=== PATIENT | male | born 1950 | race Caucasian/White ===

== ENCOUNTER 2017-11-25 09:55 | Outpatient (CLI) | payer OTHER ==
[2017-11-25 10:30] LABS: BASOPHILS % (AUTO) 0.6 % (0-1); EOSINOPHILS # (AUTO) 0.2 X10'3 (0-0.9); EOSINOPHILS % (AUTO) 3.6 % (0-6); HEMATOCRIT 44.1 % (42.0-52.0); HEMOGLOBIN 15.2 g/dl (14.0-17.9); LYMPHOCYTES # (AUTO) 1.9 X10'3 (1.1-4.8); LYMPHOCYTES % (AUTO) 30.2 % (21-51); MEAN CORPUSCULAR HGB CONC 34.4 % (33.0-36.5); MEAN CORPUSCULAR VOLUME 98.9 FL (78-98); MEAN PLATELET VOLUME 7.5 FL (7.4-10.4); MONOCYTES # (AUTO) 0.6 X10'3 (0-0.9); MONOCYTES % (AUTO) 9.3 % (2-12); NEUTROPHILS # (AUTO) 3.5 X10'3 (1.8-7.7); NEUTROPHILS % (AUTO) 56.3 % (42-75); PLATELET COUNT 130 X10'3 (140-440); RED BLOOD COUNT 4.46 X10'6 (4.70-6.10); RED CELL DISTRIBUTION WIDTH 13.1 % (11.5-14.5); WHITE BLOOD COUNT 6.2 X10'3 (4.5-11.0)
[2017-11-25 10:38] LABS: GLUCOSE, URINE NEGATIVE (Neg); KETONES,URINE NEGATIVE (Neg); LEUKOCYTE ESTERASE ,URINE NEGATIVE (Neg); NITRITES, URINE NEGATIVE (Neg); OCCULT BLOOD,URINE NEGATIVE (Neg); PROTEIN,URINE TRACE mg/dl (Neg); UROBILINOGEN,URINE 0.2 E.U/dL (0.2-1.0)
[2017-11-25 10:44] LABS: CLARITY,URINE CLEAR (Clear); COLOR,URINE YELLOW (Yellow); UA COLLECTION TYPE CLN CATCH MIDSTREAM
[2017-11-25 10:46] LABS: BACTERIA,URINE NONE SEEN /HPF (Neg); RBC,URINE NONE SEEN /HPF (0-2); SQUAMOUS EPITHELIAL CELL,UR FEW /LPF (FEW); WBC,URINE NONE SEEN /HPF (0-4)
[2017-11-25 10:56] LABS: ALANINE AMINOTRANSFERASE 20 U/L (12-78); ALBUMIN 3.6 G/DL (3.4-5.0); ALKALINE PHOSPHATASE 105 IU/L (46-116); ANION GAP 6 (8-16); ASPARTATE AMINO TRANSFERASE 11 U/L (10-37); BILIRUBIN,TOTAL 0.4 MG/DL (0.1-1.0); BLOOD UREA NITROGEN 23 MG/DL (7-18); BUN/CREATININE RATIO 21.5 (5.4-32.0); CALCIUM 8.9 MG/DL (8.5-10.1); CHLORIDE 104 MMOL/L (99-107); CHOL/HDL RATIO 2.7 (0.00-4.99); CHOLESTEROL 133 MG/DL (0-200); CREATININE 1.07 MG/DL (0.60-1.10); GLUCOSE 155 MG/DL (70-104); HDL CHOLESTEROL 49 MG/DL (35-60); LDL CHOLESTEROL 76 MG/DL (50-100); POTASSIUM 4.2 MMOL/L (3.5-5.1); SODIUM 140 MMOL/L (135-145); TOTAL CARBON DIOXIDE 30.2 MMOL/L (24-32); TOTAL PROTEIN 7.1 G/DL (6.4-8.2); TRIGLYCERIDES 93 MG/DL (20-135); eGFR 69 ML/MIN
== END 2017-11-25 23:59 | disposition home or self-care (01) ==
LOC: LAB 09:55
PROVIDERS: ATTEND Family Medicine
DX: E11.9 Type 2 diabetes mellitus without complications (principal); F17.200 Nicotine dependence, unspecified, uncomplicated
CPT/HCPCS: 36415; 80053; 80061; 81001; 83036; 84443; 85025

== ENCOUNTER 2021-09-02 11:50 | Inpatient (IN) | payer MEDICARE, OTHER ==
[~2021-09-02] VITALS: Ht 170.2 cm; Wt 157.0 kg
[2021-09-02] MEDS ORDERED: dexamethasone sod phosphate 10mg/ml inj IV STA (12:27)
[2021-09-02] MEDS ORDERED: normal saline 1000ML IV soln IVB ONE ×2 (12:30→15:25)
[2021-09-02] MEDS ORDERED: ipratropium/albuterol 3ml nebule NEB ONE (12:35)
[2021-09-02 13:03] LABS: BASOPHILS % (AUTO) 0.1 % (0-1); EOSINOPHILS % (AUTO) 0.5 % (0-6); HEMATOCRIT 37.6 % (42.0-52.0); HEMOGLOBIN 12.5 g/dl (14.0-17.9); LYMPHOCYTES # (AUTO) 0.4 X10'3 (1.1-4.8); LYMPHOCYTES % (AUTO) 5.8 % (21-51); MEAN CORPUSCULAR HEMOGLOBIN 33.4 PG (27.0-31.0); MEAN CORPUSCULAR HGB CONC 33.2 g/dL (33.0-36.5); MEAN CORPUSCULAR VOLUME 100.6 FL (78-98); MEAN PLATELET VOLUME 7.8 FL (7.4-10.4); MONOCYTES # (AUTO) 0.6 X10'3 (0-0.9); MONOCYTES % (AUTO) 8.3 % (2-12); NEUTROPHILS # (AUTO) 6.2 X10'3 (1.8-7.7); NEUTROPHILS % (AUTO) 85.3 % (42-75); PLATELET COUNT 141 X10'3 (140-440); RED BLOOD COUNT 3.74 X10'6 (4.70-6.10); RED CELL DISTRIBUTION WIDTH 14.4 % (11.5-14.5); WHITE BLOOD COUNT 7.3 X10'3 (4.5-11.0)
[2021-09-02 13:31] LABS: ALANINE AMINOTRANSFERASE 14 U/L (12-78); ALBUMIN 2.1 G/DL (3.4-5.0); ALBUMIN/GLOBULIN RATIO 0.5 (1.1-1.5); ALKALINE PHOSPHATASE 124 IU/L (46-116); ASPARTATE AMINO TRANSFERASE 13 U/L (10-37); BILIRUBIN,TOTAL 0.4 MG/DL (0.1-1.0); BLOOD UREA NITROGEN 12 MG/DL (7-18); BUN/CREATININE RATIO 16.9 (5.4-32.0); CALCIUM 9.9 MG/DL (8.5-10.1); CREATININE 0.71 MG/DL (0.60-1.10); MAGNESIUM 1.5 MG/DL (1.5-2.4); TOTAL CARBON DIOXIDE 32.8 MMOL/L (24-32); TOTAL PROTEIN 6.5 G/DL (6.4-8.2); eGFR > 90 ML/MIN
[2021-09-02 13:36] LABS: GLUCOSE 533 MG/DL (70-104)
[2021-09-02 13:47] LABS: CLARITY,URINE CLEAR (Clear); GLUCOSE, URINE >=1000 mg/dl (Neg); KETONES,URINE 15 mg/dl (Neg); LEUKOCYTE ESTERASE ,URINE NEGATIVE (Neg); NITRITES, URINE NEGATIVE (Neg); OCCULT BLOOD,URINE NEGATIVE (Neg); PROTEIN,URINE NEGATIVE (Neg); UROBILINOGEN,URINE 0.2 E.U/dL (0.2-1.0)
[2021-09-02 13:50] LABS: COLOR,URINE STRAW (Yellow); UA COLLECTION TYPE STRAIGHT CATH
[2021-09-02 13:52] LABS: SQUAMOUS EPITHELIAL CELL,UR FEW /LPF (FEW)
[2021-09-02 13:53] LABS: BACTERIA,URINE FEW /HPF (Neg); RBC,URINE 0-2 /HPF (0-2); WBC,URINE 0-4 /HPF (0-4)
[2021-09-02] MEDS ORDERED: iohexol 350MG/ML 100ml bottle IV ONE (14:46)
[2021-09-02] MEDS ORDERED: DOXY100C43 PO ×2 (14:53)
[2021-09-02] MEDS ORDERED: insulin regular, human 10 units/0.1 ml syringe IV ONE (15:25)
[2021-09-02] MEDS ORDERED: CefTRIAXone 2gm/D5W 50ml BAG 50 ML IV ONE (15:30)
[2021-09-02] MEDS ORDERED: HYDROcodone/acetaminophen 10/325mg tab PO PRN (15:45)
[2021-09-02] MEDS ORDERED: ondansetron 4mg rapidly disintigrating tab PO PRN (15:45)
[2021-09-02] MEDS ORDERED: bisacodyl 10mg suppository rectal RC PRN (15:45)
[2021-09-02] MEDS ORDERED: acetaminophen 325mg tablet PO PRN ×2 (15:45)
[2021-09-02] MEDS ORDERED: ondansetron/PF 4mg/2ml inj IV PRN (15:45)
[2021-09-02] MEDS ORDERED: HYDROcodone/acetaminophen 5mg/325mg tablet PO PRN (15:45)
[2021-09-02] MEDS ORDERED: potassium CL 10mEq/100ml bag 100 ML IV PRN (15:45)
[2021-09-02] MEDS ORDERED: metoclopramide 5 mg/ml inj IV PRN (15:45)
[2021-09-02] MEDS ORDERED: acetaminophen 650mg rectal suppository RC PRN (15:45)
[2021-09-02] MEDS ORDERED: magnesium 2GM in 50ml NS 50 ML IV PRN (15:45)
[2021-09-02] MEDS ORDERED: azithromycin 250mg tablet PO ONE (15:45)
[2021-09-02] MEDS ORDERED: mag hydrox/Alum hydrox/simeth 30ml oral suspension PO PRN (15:45)
[2021-09-02] MEDS ORDERED: ipratropium/albuterol 3ml nebule NEB PRN (15:45)
[2021-09-02] MEDS ORDERED: potassium Cl 20 mEq SR tablet PO PRN ×2 (15:45)
[2021-09-02] MEDS ORDERED: magnesium hydroxide 30ml (MOM) UD suspension PO PRN (15:45)
[2021-09-02] MEDS ORDERED: magnesium Cl slow-release 64mg tablet PO PRN (15:45)
[2021-09-02] MEDS ORDERED: magnesium 4gm in 100ml NS 100 ML IV PRN (15:45)
[2021-09-02] MEDS ORDERED: MESSAGE TO PHARMACY PO ONE (15:55)
[2021-09-02] MEDS ORDERED: dextrose 50%-water 50ml dispensing syringe IV PRN ×2 (15:55)
[2021-09-02] MEDS ORDERED: glucagon, human recombinant 1mg kit SUBCUT PRN (15:55)
[2021-09-02] MEDS ORDERED: DEXTROSE 15 GM of carb/4 tabs (each vial/BOTTLE has 4 tablets) PO PRN ×2 (15:55)
[2021-09-02] MEDS: normal saline 1000ml 1,000 ML IV SCH (16:16)
--- NOTE | 2021-09-02 18:54 | NUR ---
Received report from MIGUELITO Keene. Awaiting patient arrival to the floor.
[2021-09-02 18:56] LABS: HEMOGLOBIN A1C 12.2 % (4.5-6.2)
[2021-09-02] MEDS ORDERED: ALBU2.5V10 (19:00)
[2021-09-02] MEDS ORDERED: NICO-630 TOP (19:00)
[2021-09-02] MEDS ORDERED: CLON-371 PO (19:00)
[2021-09-02] MEDS ORDERED: FLO0.4C PO (19:00)
[2021-09-02] MEDS ORDERED: APIX5TAB3 PO (19:00)
[2021-09-02] MEDS ORDERED: TEMA30CA PO (19:00)
--- NOTE | 2021-09-02 19:20 | NUR ---
pt currently asymptomatic and after report hr is at 147 and afib. hospitalist contacted
--- NOTE | 2021-09-02 19:28 | NUR ---
HOSPITALIST CONTACTED IN REGARDS TO PT IN AFIB. VERBAL ORDER FOR 10MG CARDIZEM RECIEVED.
[2021-09-02] MEDS ORDERED: SOTA80TA73 PO (19:30)
[2021-09-02] MEDS ORDERED: diltiazem 5mg/ml 5ml inj. IV ONE (19:30)
[2021-09-02] MEDS: K and/or MAG REPLACEMENT MC SCH (20:00)
[2021-09-02 20:20] VITALS: BP 119/67
[2021-09-02] MEDS: ipratropium/albuterol 3ml nebule NEB SCH (20:31)
[2021-09-02] MEDS ORDERED: NICO-631 TD (20:39)
[2021-09-02] MEDS ORDERED: temazepam 15mg capsule PO PRN (21:00)
[2021-09-02] MEDS ORDERED: albuterol 2.5 MG/3 ML nebule NEB PRN (21:05)
[2021-09-02] MEDS ORDERED: tamsulosin 0.4mg capsule PO ONE (21:10)
[2021-09-02] MEDS ORDERED: nicotine 14mg patch - 24hr TD ONE (21:10)
[2021-09-02] MEDS ORDERED: apixaban 5mg tablet PO ONE (21:10)
[2021-09-02] MEDS ORDERED: sotalol 80mg tablet PO ONE (21:10)
[2021-09-02] MEDS: temazepam 15mg capsule PO PRN (21:28)
[2021-09-02] MEDS: insulin glargine (Lantus) pen - multi-dose SQ SCH (21:37)
[2021-09-02 22:00] VITALS: BP 105/61
[2021-09-03 02:00] VITALS: BP 105/54
[2021-09-03] MEDS: ipratropium/albuterol 3ml nebule NEB SCH ×4 (03:28→20:00)
[2021-09-03] MEDS: normal saline 1000ml 1,000 ML IV SCH ×2 (05:13→19:31)
[2021-09-03 06:00] VITALS: BP 105/62
--- NOTE | 2021-09-03 06:23 | NUR ---
Problems reprioritized. Patient report given, questions answered & plan of care reviewed with Carla RN.
[2021-09-03 07:02] LABS: BASOPHILS % (AUTO) 0.1 % (0-1); EOSINOPHILS % (AUTO) 0 % (0-6); HEMATOCRIT 33.1 % (42.0-52.0); LYMPHOCYTES # (AUTO) 0.6 X10'3 (1.1-4.8); LYMPHOCYTES % (AUTO) 6.3 % (21-51); MEAN CORPUSCULAR HEMOGLOBIN 33.6 PG (27.0-31.0); MEAN CORPUSCULAR HGB CONC 33.4 g/dL (33.0-36.5); MEAN CORPUSCULAR VOLUME 100.6 FL (78-98); MONOCYTES # (AUTO) 0.2 X10'3 (0-0.9); MONOCYTES % (AUTO) 2.4 % (2-12); NEUTROPHILS # (AUTO) 8.8 X10'3 (1.8-7.7); NEUTROPHILS % (AUTO) 91.2 % (42-75); PLATELET COUNT 161 X10'3 (140-440); RED BLOOD COUNT 3.29 X10'6 (4.70-6.10); RED CELL DISTRIBUTION WIDTH 14.1 % (11.5-14.5); WHITE BLOOD COUNT 9.7 X10'3 (4.5-11.0)
[2021-09-03 07:44] LABS: ALANINE AMINOTRANSFERASE 12 U/L (12-78); ALBUMIN 1.9 G/DL (3.4-5.0); ALBUMIN/GLOBULIN RATIO 0.5 (1.1-1.5); ALKALINE PHOSPHATASE 112 IU/L (46-116); ANION GAP 8 (8-16); ASPARTATE AMINO TRANSFERASE 10 U/L (10-37); BILIRUBIN,TOTAL 0.3 MG/DL (0.1-1.0); BLOOD UREA NITROGEN 18 MG/DL (7-18); BUN/CREATININE RATIO 23.4 (5.4-32.0); CALCIUM 8.7 MG/DL (8.5-10.1); CHLORIDE 102 MMOL/L (99-107); CREATININE 0.77 MG/DL (0.60-1.10); GLUCOSE 378 MG/DL (70-104); MAGNESIUM 1.6 MG/DL (1.5-2.4); POTASSIUM 4.6 MMOL/L (3.5-5.1); SODIUM 137 MMOL/L (135-145); TOTAL PROTEIN 5.9 G/DL (6.4-8.2); eGFR > 90 ML/MIN
[2021-09-03] MEDS: apixaban 5mg tablet PO SCH ×2 (08:00→19:16)
[2021-09-03] MEDS: SOTALOL PO SCH ×2 (08:00→19:34)
[2021-09-03] MEDS: K and/or MAG REPLACEMENT MC SCH ×2 (08:00→19:37)
[2021-09-03] MEDS ORDERED: enoxaparin 40mg/0.4ml syringe SUBCUT SCH (08:00)
[2021-09-03] MEDS: azithromycin 250mg tablet PO SCH (08:01)
[2021-09-03] MEDS: CefTRIAXone/D5W-Rocephin 1gm 50 ML IV SCH (08:07)
[2021-09-03 08:55] LABS: POTASSIUM 4.9 MMOL/L (3.3-5.1)
[2021-09-03 11:00] VITALS: BP 106/56
--- NOTE | 2021-09-03 11:55 | NUR ---
Diabetes consult: Noted pt w/ hx of DM, A1c 12.2. Provided Pt/SO w/ written and verbal DM ed w/ RD contact info. Per discussion w/ Pt/SO, he used to weigh over 200lb and purposefully lost wt using intermittent fasting and achieved better glucose control, but now it has gotten worse. Pt states that he usually used to eat only 1 meal per day. Informed Pt/SO that intermittent fasting is not recommend for managing Diabetes and the risk of hypoglycemia. No visible fat/muscle wasting observed at bedside. No edema noted. Pending PO trends. Will continue to monitor. Addendum: 09/03/21 at [address] Amended: Links added.
[2021-09-03] MEDS: insulin Lispro (HumaLOG) vial - multi-dose SQ SCH ×3 (13:31→21:15)
[2021-09-03 15:38] LABS: POTASSIUM 4.9 MMOL/L (3.5-5.1); SODIUM 138 MMOL/L (135-145)
[2021-09-03 15:39] LABS: ANION GAP 8 (8-16); CHLORIDE 97 MMOL/L (99-107)
[2021-09-03 18:00] VITALS: BP 104/55
[2021-09-03 19:15] VITALS: BP 111/60
[2021-09-03] MEDS: methylPREDNISolone sod succ/PF 40mg inj. IV SCH (19:16)
[2021-09-03] MEDS: nicotine 14mg patch - 24hr TD SCH (20:32)
[2021-09-03] MEDS: tamsulosin 0.4mg capsule PO SCH (20:33)
[2021-09-03] MEDS: insulin glargine (Lantus) pen - multi-dose SQ SCH (21:16)
[2021-09-03 22:00] VITALS: BP 107/57
[2021-09-03] MEDS: clonazePAM 1mg tablet PO PRN (22:54)
[2021-09-03] MEDS: temazepam 15mg capsule PO PRN (22:55)
[2021-09-04] VITALS (7 sets, daily range): BP systolic 102–130; BP diastolic 51–67
--- NOTE | 2021-09-04 00:45 | NUR ---
At 0035, patient noted on the floor, stated he was going to the bathroom. Unable to get up by self. Neuro and physical assessments done. Patient remains alert and responsive, oriented x 4, denies respiratory and physical distress. PERRLA noted. No loss of consciousness. Patient denies hitting head, denies hitting any parts of the body, stated "I slid onto the floor". No open areas, no ecchymosis noted on any parts of the body. Vital signs 117/58; 20; 98.1; 20; 92% on 02 at 3L NC. Will continue to monitor.
--- NOTE | 2021-09-04 00:50 | NUR ---
PAGER ID: [phone] MESSAGE: Pt [id number] Esthela Milan MAYER fell scrapped knees but says did not hit head. VSS Gena [id number]
--- NOTE | 2021-09-04 00:52 | NUR ---
Dr. Nunez made aware of patient's fall. VSS No new orders at this time
[2021-09-04] MEDS: ipratropium/albuterol 3ml nebule NEB SCH ×3 (02:41→14:16)
[2021-09-04] MEDS: methylPREDNISolone sod succ/PF 40mg inj. IV SCH ×4 (03:10→20:23)
[2021-09-04] MEDS: normal saline 1000ml 1,000 ML IV SCH (04:20)
[2021-09-04 06:12] LABS: BASOPHILS % (AUTO) 0 % (0-1); EOSINOPHILS % (AUTO) 0 % (0-6); HEMATOCRIT 31.2 % (42.0-52.0); HEMOGLOBIN 10.5 g/dl (14.0-17.9); LYMPHOCYTES # (AUTO) 0.4 X10'3 (1.1-4.8); LYMPHOCYTES % (AUTO) 4.1 % (21-51); MEAN CORPUSCULAR HEMOGLOBIN 33.5 PG (27.0-31.0); MEAN CORPUSCULAR HGB CONC 33.8 g/dL (33.0-36.5); MEAN CORPUSCULAR VOLUME 99.2 FL (78-98); MEAN PLATELET VOLUME 7.8 FL (7.4-10.4); MONOCYTES # (AUTO) 0.1 X10'3 (0-0.9); MONOCYTES % (AUTO) 0.9 % (2-12); NEUTROPHILS # (AUTO) 10.3 X10'3 (1.8-7.7); PLATELET COUNT 187 X10'3 (140-440); RED BLOOD COUNT 3.15 X10'6 (4.70-6.10); RED CELL DISTRIBUTION WIDTH 13.9 % (11.5-14.5); WHITE BLOOD COUNT 10.8 X10'3 (4.5-11.0)
--- NOTE | 2021-09-04 06:14 | NUR ---
Problems reprioritized. Patient report given, questions answered & plan of care reviewed with Carla RN, she is aware of patient's fall last night and that bed alarm is on and patient is not happy about it.
[2021-09-04 06:58] LABS: ALANINE AMINOTRANSFERASE 16 U/L (12-78); ALBUMIN 1.8 G/DL (3.4-5.0); ALBUMIN/GLOBULIN RATIO 0.5 (1.1-1.5); ALKALINE PHOSPHATASE 98 IU/L (46-116); ANION GAP 8 (8-16); ASPARTATE AMINO TRANSFERASE 12 U/L (10-37); BILIRUBIN,TOTAL 0.3 MG/DL (0.1-1.0); BLOOD UREA NITROGEN 22 MG/DL (7-18); BUN/CREATININE RATIO 28.2 (5.4-32.0); CALCIUM 8.4 MG/DL (8.5-10.1); CHLORIDE 105 MMOL/L (99-107); CREATININE 0.78 MG/DL (0.60-1.10); GLUCOSE 286 MG/DL (70-104); POTASSIUM 4.4 MMOL/L (3.5-5.1); SODIUM 141 MMOL/L (135-145); TOTAL CARBON DIOXIDE 27.9 MMOL/L (24-32); TOTAL PROTEIN 5.7 G/DL (6.4-8.2); eGFR > 90 ML/MIN
[2021-09-04] MEDS: K and/or MAG REPLACEMENT MC SCH ×2 (07:09→20:00)
[2021-09-04 07:16] LABS: MAGNESIUM 1.7 MG/DL (1.5-2.4)
[2021-09-04] MEDS: azithromycin 250mg tablet PO SCH (07:31)
[2021-09-04] MEDS: apixaban 5mg tablet PO SCH ×2 (07:32→20:25)
[2021-09-04] MEDS: SOTALOL PO SCH ×2 (07:33→20:26)
[2021-09-04] MEDS: insulin Lispro (HumaLOG) vial - multi-dose SQ SCH ×3 (09:13→21:15)
[2021-09-04] MEDS: CefTRIAXone/D5W-Rocephin 1gm 50 ML IV SCH (09:18)
--- NOTE | 2021-09-04 12:04 | NUR ---
Student documentation: I have reviewed and agree with all interventions, assessments performed and documented by Laurita, director community health nursing.
--- NOTE | 2021-09-04 12:05 | NUR ---
Student Medication Administration: For this medication-pass time frame, all medication were reviewed, dispensed, administered and documented per hospital policy by Laurita nursing associate.
[2021-09-04] MEDS: tamsulosin 0.4mg capsule PO SCH (20:25)
[2021-09-04] MEDS: nicotine 14mg patch - 24hr TD SCH (20:25)
[2021-09-04] MEDS: clonazePAM 1mg tablet PO PRN (21:13)
[2021-09-04] MEDS: temazepam 15mg capsule PO PRN (21:13)
[2021-09-04] MEDS: insulin glargine (Lantus) pen - multi-dose SQ SCH (21:16)
[2021-09-05] MEDS: methylPREDNISolone sod succ/PF 40mg inj. IV SCH ×2 (02:54→08:04)
[2021-09-05] MEDS: normal saline 1000ml 1,000 ML IV SCH (02:56)
[2021-09-05 05:56] LABS: BASOPHILS % (AUTO) 0.1 % (0-1); EOSINOPHILS % (AUTO) 0 % (0-6); HEMATOCRIT 32.2 % (42.0-52.0); HEMOGLOBIN 10.7 g/dl (14.0-17.9); LYMPHOCYTES # (AUTO) 0.5 X10'3 (1.1-4.8); LYMPHOCYTES % (AUTO) 3.8 % (21-51); MEAN CORPUSCULAR HEMOGLOBIN 32.8 PG (27.0-31.0); MEAN CORPUSCULAR HGB CONC 33.1 g/dL (33.0-36.5); MEAN PLATELET VOLUME 7.7 FL (7.4-10.4); MONOCYTES # (AUTO) 0.2 X10'3 (0-0.9); MONOCYTES % (AUTO) 1.5 % (2-12); NEUTROPHILS # (AUTO) 13.2 X10'3 (1.8-7.7); NEUTROPHILS % (AUTO) 94.6 % (42-75); PLATELET COUNT 198 X10'3 (140-440); RED BLOOD COUNT 3.26 X10'6 (4.70-6.10); RED CELL DISTRIBUTION WIDTH 13.9 % (11.5-14.5)
[2021-09-05 06:00] VITALS: BP 117/71
[2021-09-05 06:13] LABS: ALANINE AMINOTRANSFERASE 7 U/L (12-78); ALBUMIN 1.7 G/DL (3.4-5.0); ALBUMIN/GLOBULIN RATIO 0.4 (1.1-1.5); ALKALINE PHOSPHATASE 84 IU/L (46-116); ANION GAP 2 (8-16); ASPARTATE AMINO TRANSFERASE 9 U/L (10-37); BILIRUBIN,TOTAL 0.2 MG/DL (0.1-1.0); BLOOD UREA NITROGEN 23 MG/DL (7-18); BUN/CREATININE RATIO 30.7 (5.4-32.0); CALCIUM 8.1 MG/DL (8.5-10.1); CHLORIDE 107 MMOL/L (99-107); CREATININE 0.75 MG/DL (0.60-1.10); GLUCOSE 353 MG/DL (70-104); MAGNESIUM 1.9 MG/DL (1.5-2.4); POTASSIUM 4.4 MMOL/L (3.5-5.1); SODIUM 140 MMOL/L (135-145); TOTAL CARBON DIOXIDE 31.2 MMOL/L (24-32); TOTAL PROTEIN 6.1 G/DL (6.4-8.2); eGFR > 90 ML/MIN
[2021-09-05] MEDS: K and/or MAG REPLACEMENT MC SCH (07:06)
[2021-09-05] MEDS: CefTRIAXone/D5W-Rocephin 1gm 50 ML IV SCH (08:04)
[2021-09-05] MEDS: azithromycin 250mg tablet PO SCH (08:05)
[2021-09-05] MEDS: apixaban 5mg tablet PO SCH (08:05)
[2021-09-05] MEDS: SOTALOL PO SCH (08:11)
[2021-09-05] MEDS: insulin Lispro (HumaLOG) vial - multi-dose SQ SCH (08:57)
[2021-09-05] MEDS ORDERED: PRED20TA PO (10:00)
[2021-09-05] MEDS ORDERED: METF-436 PO (10:00)
[2021-09-05] MEDS ORDERED: LEVO500T90 PO (10:00)
[2021-09-05 11:00] VITALS: BP 123/64
== END 2021-09-05 13:30 | disposition home health service (06) | DRG 193 ==
LOC: ER 11:50 → ED HOLD 15:51 → EDBEDREQ 18:13 → PCU 3S 19:45
PROVIDERS: ADMIT Family Medicine; ATTEND Family Medicine
PROC: B32T1ZZ Computerized Tomography (CT Scan) of Left Pulmonary Artery using Low Osmolar Contrast (ICD-10-PCS; principal; 2021-09-02)
PROC: B3201ZZ Computerized Tomography (CT Scan) of Thoracic Aorta using Low Osmolar Contrast (ICD-10-PCS; 2021-09-02)
PROC: B32S1ZZ Computerized Tomography (CT Scan) of Right Pulmonary Artery using Low Osmolar Contrast (ICD-10-PCS; 2021-09-02)
DX: J18.9 Pneumonia, unspecified organism (principal); J96.21 Acute and chronic respiratory failure with hypoxia; J44.0 Chronic obstructive pulmonary disease with (acute) lower respiratory infection; J44.1 Chronic obstructive pulmonary disease with (acute) exacerbation; I48.91 Unspecified atrial fibrillation; Z20.822 Contact with and (suspected) exposure to COVID-19; D64.9 Anemia, unspecified; E11.9 Type 2 diabetes mellitus without complications; I49.5 Sick sinus syndrome; Z87.891 Personal history of nicotine dependence; Z99.81 Dependence on supplemental oxygen
CPT/HCPCS: 36415; 71045; 71275; 80053; 81001; 82948; 83036; 83605; 83735; 83880; 84145; 84484; 85025; 85610; 87040; 87077; 87186; 87635; 93005; 94640; 94667; 94760; 96365; 96375; 97116; 97161; 97530; 99285; C9803; G0378; J0696; J1100; J1815; J2920; J7030; Q9967

== ENCOUNTER → 2023-06-25 | Emergency (ER) | payer MEDICARE, OTHER ==
[~2023-06-25] VITALS: Ht 170.2 cm; Wt 77.3 kg
[~2023-06-25] MED LIST: ALBU2.5V10; ALPH600C3 PO; AMA1T PO; APIX5TAB3 PO; FLO0.4C PO; FLUT1BLS13 IH; MELA5CAP PO; METF-436 PO; MULT-620 PO; NICO-731 TOP; PREG150C47 PO; SOTA120T PO; TEMA30CA5 PO
[2023-06-25 11:50] LABS: BASOPHILS # (AUTO) 0.1 X10'3 (0-0.2); BASOPHILS % (AUTO) 1.2 % (0-1); EOSINOPHILS # (AUTO) 0.5 X10'3 (0-0.9); EOSINOPHILS % (AUTO) 8.9 % (0-6); HEMATOCRIT 32.3 % (42.0-52.0); HEMOGLOBIN 10.2 g/dl (14.0-17.9); LYMPHOCYTES % (AUTO) 15.9 % (21-51); MEAN CORPUSCULAR HEMOGLOBIN 26.9 PG (27.0-31.0); MEAN CORPUSCULAR HGB CONC 31.7 g/dL (33.0-36.5); MEAN CORPUSCULAR VOLUME 84.8 FL (78-98); MEAN PLATELET VOLUME 7.9 FL (7.4-10.4); MONOCYTES # (AUTO) 0.7 X10'3 (0-0.9); MONOCYTES % (AUTO) 12.4 % (2-12); NEUTROPHILS # (AUTO) 3.7 X10'3 (1.8-7.7); NEUTROPHILS % (AUTO) 61.6 % (42-75); PLATELET COUNT 144 X10'3 (140-440); RED BLOOD COUNT 3.81 X10'6 (4.70-6.10); RED CELL DISTRIBUTION WIDTH 15.1 % (11.5-14.5)
[2023-06-25 12:05] LABS: ALANINE AMINOTRANSFERASE 17 U/L (12-78); ALBUMIN 3.1 G/DL (3.4-5.0); ALBUMIN/GLOBULIN RATIO 0.7 (1.1-1.5); ALKALINE PHOSPHATASE 90 IU/L (46-116); ANION GAP 2 (8-16); ASPARTATE AMINO TRANSFERASE 17 U/L (10-37); BILIRUBIN,TOTAL 0.4 MG/DL (0.1-1.0); BLOOD UREA NITROGEN 15 MG/DL (7-18); BUN/CREATININE RATIO 12.1 (10.0-20.0); CALCIUM 8.8 MG/DL (8.5-10.1); CHLORIDE 104 MMOL/L (99-107); CREATININE 1.24 MG/DL (0.60-1.10); GLUCOSE 147 MG/DL (70-104); POTASSIUM 4.2 MMOL/L (3.5-5.1); SODIUM 143 MMOL/L (135-145); TOTAL CARBON DIOXIDE 37.4 MMOL/L (24-32); TOTAL PROTEIN 7.6 G/DL (6.4-8.2); eCRCL 49 ML/MIN; eGFR 57 ML/MIN
[2023-06-25 12:12] LABS: PRO BRAIN NATRIURETIC PEPTIDE 860 PG/ML (0-125)
[2023-06-25 13:55] VITALS: BP 121/69; PULSE 70; RESP 16; TEMP 97.6; O2SAT 95
== END | disposition left against medical advice (07) ==
LOC: ER 11:28
DX: R06.02 Shortness of breath (principal); Z53.21 Procedure and treatment not carried out due to patient leaving prior to being seen by health care provider
CPT/HCPCS: 36415; 71045; 80053; 83880; 84484; 85025; 93005; 99281